=== PATIENT | female | born 1985 | race African-American/Black ===

== ENCOUNTER 2016-07-06 16:30 | Emergency (ER) | payer BC ==
--- NOTE | 2016-07-06 16:39 | ER Document Report ---
ED Medical Screen (RME) - General Stated Complaint: KNEE INJURY Mode of Arrival: Ambulatory Information source: Patient Notes: Patient fell down steps injuring left knee. I have greeted and performed a rapid initial assessment of this patient. A comprehensive ED assessment and evaluation of the patient, analysis of test results and completion of the medical decision making process will be conducted by additional ED providers. TRAVEL OUTSIDE OF THE [place] IN LAST 30 DAYS: No - Related Data Allergies/Adverse Reactions: No Known Allergies Allergy (Verified 07/06/16 16:37) Past Medical History - Social History Chew tobacco use (# tins/day): No Frequency of alcohol use: None Drug Abuse: None Pulmonary Medical History: Reports: Hx Asthma Renal/ Medical History: Denies: Hx Peritoneal Dialysis Past Surgical History: Reports: Hx Gynecologic Surgery - leep procedure - Immunizations Immunizations up to date: No Hx Diphtheria, Pertussis, Tetanus Vaccination: No Physical Exam - Vital signs Vitals: Temp Pulse Resp BP Pulse Ox 98.3 F 109 H 16 137/94 H 98 07/06/16 16:37 07/06/16 16:37 07/06/16 16:37 07/06/16 16:37 07/06/16 16:37 - Extremities General lower extremity: Tender - Left knee Course - Vital Signs Vital signs: Temp Pulse Resp BP Pulse Ox 98.3 F 109 H 16 137/94 H 98 07/06/16 16:37 07/06/16 16:37 07/06/16 16:37 07/06/16 16:37 07/06/16 16:37
--- NOTE | 2016-07-06 18:39 | ER Document Report ---
HPI - HPI Patient complains to provider of: left knee pain Onset: This afternoon Onset/Duration: Persistent Quality of pain: Achy Severity: Moderate Pain Level: 3 Context: Patient complains of left knee pain after falling down 4 concrete steps. Patient reports it hurts to walk. She denies past medical history of injury the knee. No other complaints such as fever vomiting diarrhea. No complaints of head pain. Associated Symptoms: None Exacerbated by: Walking Relieved by: Denies Similar symptoms previously: No Recently seen / treated by doctor: No - REPRODUCTIVE Reproductive: DENIES: : - DERM Skin Color: Normal Past Medical History - General Information source: Patient Last Menstrual Period: 06/20/16 - Social History Smoking Status: Unknown if Ever Smoked Cigarette use (# per day): No Chew tobacco use (# tins/day): No Frequency of alcohol use: None Drug Abuse: None Occupation: [employer] [place] Family History: DM, Malignancy Patient has suicidal ideation: No Patient has homicidal ideation: No Pulmonary Medical History: Reports: Hx Asthma Renal/ Medical History: Denies: Hx Peritoneal Dialysis Surgical Hx: Negative Past Surgical History: Reports: Hx Gynecologic Surgery - leep procedure - Immunizations Immunizations up to date: No Hx Diphtheria, Pertussis, Tetanus Vaccination: No Vertical Provider Document - CONSTITUTIONAL Agree With Documented VS: Yes Exam Limitations: No Limitations General Appearance: WD/WN, Mild Distress - INFECTION CONTROL TRAVEL OUTSIDE OF THE [place] IN LAST 30 DAYS: No - HEENT HEENT: Atraumatic, Normocephalic - NECK Neck: Normal Inspection, Supple - RESPIRATORY Respiratory: No Respiratory Distress O2 Sat by Pulse Oximetry: 98 - CARDIOVASCULAR Cardiovascular: Regular Rate - MUSCULOSKELETAL/EXTREMETIES Musculoskeletal/Extremeties: MAEW, FROM, Tender - left knee point ttp with erythema, slight swelling - NEURO Level of Consciousness: Awake, Alert, Appropriate Motor/Sensory: No Motor Deficit - DERM Integumentary: Warm, Dry Adult Front & Back Diagram: 1 - c/o pain, ttp Course - Re-evaluation Re-evalutation: 07/06/16 19:21 Patient instructed on negative x-rays plan of care to include Motrin rest ice. Patient prescribed crutches because it hurts when she walks - Vital Signs Vital signs: Temp Pulse Resp BP Pulse Ox 98.3 F 109 H 16 137/94 H 98 07/06/16 16:37 07/06/16 16:37 07/06/16 16:37 07/06/16 16:37 07/06/16 16:37 - Diagnostic Test Radiology reviewed: Image reviewed, Reports reviewed - IMPRESSION: NEGATIVE STUDY OF THE LEFT KNEE. NO RADIOGRAPHIC EVIDENCE OF ACUTE INJURY IMPRESSION: NO SIGNIFICANT RADIOGRAPHIC ABNORMALITY. Discharge - Discharge Clinical Impression: elevated blood pressure reading Left knee pain Qualifiers: Chronicity: acute Qualified Code(s): M25.562 - Pain in left knee Condition: Stable Disposition: HOME, SELF-CARE Instructions: Ice & Elevation ([facility]), Ibuprofen (General) ([facility]), Use of Crutches ([facility]) Additional Instructions: *You have been evaluated for left knee pain *Monitor your blood pressure. Your blood pressure was elevated today. This may be because you were anxious, in pain or because you need medication. It is important to follow up with your primary care provider for full evaluation. *Use the crutches for comfort *Rest/Ice/Elevate *Follow up with orthopedics for continued pain-call for an appointment *Take medication as prescribed *Follow up with her primary care provider within one week for recheck. *Return to ED for worsening condition, changes, needs Prescriptions: Ibuprofen [Motrin 800 mg Tablet] 800 mg PO TID PRN #30 tablet PRN Reason: Forms: Elevated Blood Pressure, Return to Work
[2016-07-06] MEDS ORDERED: ACETAMINOPHEN 325 MG TABLET PO ONE (18:46)
[2016-07-06 19:50] VITALS: BP 132/88
== END 2016-07-06 19:50 | disposition home or self-care (01) ==
LOC: ER 16:30
DX: M25.562 Pain in left knee (principal); R03.0 Elevated blood-pressure reading, without diagnosis of hypertension
CPT/HCPCS: 99283

== ENCOUNTER 2016-11-21 16:59 | Emergency (ER) | payer BC ==
[2016-11-21] MEDS ORDERED: IBUPROFEN 800 MG TABLET PO ONE (17:42)
[2016-11-21] MEDS ORDERED: ONDANSETRON 4 MG TAB.RAPDIS PO ONE (17:42)
--- NOTE | 2016-11-21 17:43 | ER Document Report ---
HPI - HPI Patient complains to provider of: nausea Onset: Other - 3 weeks Onset/Duration: Persistent Quality of pain: Achy Pain Level: 2 Context: Patient complains of nausea for the past 3 weeks. Patient states that she vomited 2 days ago but none since then. Patient denies any abdominal pain or back pain. Patient does state that she has anterior chest pain but states that this is a chronic pain that she has had for the past year. Patient states she has seen her primary doctor about this he feels that she has costochondritis and she is also seen a propulsion motor and generator repairer who feels that she has reactive airway disease. Patient personally believes that she has chest wall discomfort due to her heavy pendulous breasts. Patient states she has had this chest pain daily for the past year and the intensity of the pain varies with her sleeping position the night before. Patient denies any fever, cough, urinary symptoms, or diarrhea. Associated Symptoms: Chest pain, Nausea. denies: Nonproductive cough, Productive cough, Diarrhea, Fever, Headache, Vomiting, Shortness of breath, Sore throat Exacerbated by: Denies Relieved by: Denies Similar symptoms previously: Yes Recently seen / treated by doctor: No - ROS ROS below otherwise negative: Yes Systems Reviewed and Negative: Yes All other systems reviewed and negative - CONSTITUTIONAL Constitutional: DENIES: Fever, Chills - EENT EENT: DENIES: Sore Throat - CARDIOVASCULAR Cardiovascular: REPORTS: Chest pain - RESPIRATORY Respiratory: DENIES: Trouble Breathing, Coughing - GASTROINTESTINAL Gastrointestinal: REPORTS: Nausea. DENIES: Abdominal Pain, Patient vomiting, Diarrhea - URINARY Urinary: DENIES: Dysuria - REPRODUCTIVE Reproductive: DENIES: : - MUSCULOSKELETAL Musculoskeletal: DENIES: Back Pain, Neck Pain - DERM Skin Color: Normal Skin Problems: None <SURJIT FIGUEROA - Last Filed: 11/21/16 21:59> Past Medical History - General Information source: Patient - Social History Smoking Status: Never Smoker Chew tobacco use (# tins/day): No Frequency of alcohol use: None Drug Abuse: None Occupation: [employer] Family History: DM, Malignancy Patient has suicidal ideation: No Patient has homicidal ideation: No Pulmonary Medical History: Reports: Hx Asthma, Other - RAD Renal/ Medical History: Denies: Hx Peritoneal Dialysis Past Surgical History: Reports: Hx Gynecologic Surgery - leep procedure - Immunizations Immunizations up to date: No Hx Diphtheria, Pertussis, Tetanus Vaccination: No <CAROLINASURJIT Maradiaga - Last Filed: 11/21/16 21:59> Vertical Provider Document - CONSTITUTIONAL Agree With Documented VS: Yes Exam Limitations: No Limitations General Appearance: WD/WN, No Apparent Distress - INFECTION CONTROL TRAVEL OUTSIDE OF THE [place] IN LAST 30 DAYS: No - HEENT HEENT: Atraumatic, Normal ENT Exam, Normocephalic - NECK Neck: Normal Inspection, Supple - RESPIRATORY Respiratory: Breath Sounds Normal, No Respiratory Distress. negative: Chest Non -Tender - Anterior chest wall tenderness that is worse with palpation O2 Sat by Pulse Oximetry: 95 - CARDIOVASCULAR Cardiovascular: Regular Rate, Regular Rhythm, No Murmur - GI/ABDOMEN Gastrointestinal: Abdomen Soft, Abdomen Non-Tender, No Organomegaly - BACK Back: Normal Inspection - MUSCULOSKELETAL/EXTREMETIES Musculoskeletal/Extremeties: MAEW, FROM - NEURO Level of Consciousness: Awake, Alert, Appropriate Motor/Sensory: No Motor Deficit, No Sensory Deficit - DERM Integumentary: Warm, Dry, No Rash <SURJIT FIGUEROA - Last Filed: 11/21/16 21:59> Course - Re-evaluation Re-evalutation: 11/21/16 20:[address] Ramirez regarding patient presentation and diagnostic test results. EKG reviewed. No additional testing advised at this time. 11/21/16 The patient has atypical chest pain as the patient's chest pain is not suggestive of pulmonary embolus, cardiac ischemia, aortic dissection, or other serious etiology. Given the extremely low risk of these diagnoses for the test in evaluation for these possibilities does not appear to be indicated at this time. Patient has been instructed to return if the symptoms worsen or change in any way. - Vital Signs Vital signs: Temp Pulse Resp BP Pulse Ox 98.6 F 88 18 133/75 H 95 11/21/16 17:06 11/21/16 17:06 11/21/16 17:06 11/21/16 17:06 11/21/16 17:06 - Laboratory Result Diagrams: 11/21/16 18:48 11/21/16 18:48 Laboratory results interpreted by me: 11/21/16 20:08 Labs- Entire Visit 11/21/16 11/21/16 11/21/16 18:48 18:48 18:48 WBC 8.7 RBC 4.95 Hgb 12.7 Hct 39.8 MCV 81 MCH 25.6 L MCHC 31.8 L RDW 15.3 H Plt Count 297 Seg Neutrophils % 54.6 Lymphocytes % 36.4 Monocytes % 7.9 Eosinophils % 0.5 Basophils % 0.6 Absolute Neutrophils 4.7 Absolute Lymphocytes 3.2 Absolute Monocytes 0.7 Absolute Eosinophils 0.0 Absolute Basophils 0.1 Sodium 138.3 Potassium 4.0 Chloride 101 Carbon Dioxide 27 Anion Gap 10 BUN 13 Creatinine 0.83 Est GFR ( Amer) > 60 Est GFR (Non-Af Amer) > 60 Glucose 85 Calcium 9.4 Total Bilirubin 0.4 Direct Bilirubin 0.3 Indirect Bilirubin Not Reportable Neonat Total Bilirubin Not Reportable AST 14 ALT 31 Alkaline Phosphatase 73 Creatine Kinase 70 CK-MB (CK-2) 0.46 Troponin I < 0.012 Total Protein 7.8 Albumin 4.1 Serum HCG, Qual Urine Color Urine Appearance Urine pH Ur Specific [place] Urine Protein Urine Glucose (UA) Urine Ketones Urine Blood Urine Nitrite Urine Bilirubin Urine Urobilinogen Ur Leukocyte Esterase Urine RBC Urine WBC Ur Squamous Epith Cells Urine Bacteria Urine Mucus Urine Trichomonas Urine Ascorbic Acid 11/21/16 11/21/16 18:48 18:48 WBC RBC Hgb Hct MCV MCH MCHC RDW Plt Count Seg Neutrophils % Lymphocytes % Monocytes % Eosinophils % Basophils % Absolute Neutrophils Absolute Lymphocytes Absolute Monocytes Absolute Eosinophils Absolute Basophils Sodium Potassium Chloride Carbon Dioxide Anion Gap BUN Creatinine Est GFR ( Amer) Est GFR (Non-Af Amer) Glucose Calcium Total Bilirubin Direct Bilirubin Indirect Bilirubin Neonat Total Bilirubin AST ALT Alkaline Phosphatase Creatine Kinase CK-MB (CK-2) Troponin I Total Protein Albumin Serum HCG, Qual NEGATIVE Urine Color YELLOW Urine Appearance SLIGHTLY-CLOUDY Urine pH 6.0 Ur Specific [place] 1.017 Urine Protein NEGATIVE Urine Glucose (UA) NEGATIVE Urine Ketones NEGATIVE Urine Blood SMALL H Urine Nitrite NEGATIVE Urine Bilirubin NEGATIVE Urine Urobilinogen NEGATIVE Ur Leukocyte Esterase MODERATE H Urine RBC 5-10 Urine WBC 10-20 Ur Squamous Epith Cells FEW Urine Bacteria 3+ Urine Mucus 2+ Urine Trichomonas PRESENT Urine Ascorbic Acid NEGATIVE 11/21/16 22:02 11/21/16 22:03 - Diagnostic Test Radiology reviewed: Reports reviewed - EKG Interpretation by Me EKG shows normal: Sinus rhythm When compared to previous EKG there are: No significant change <SURJIT FIGUEROA - Last Filed: 11/21/16 21:59> - Vital Signs Vital signs: Temp Pulse Resp BP Pulse Ox 98.2 F 75 18 126/78 H 95 11/21/16 20:39 11/21/16 20:39 11/21/16 20:39 11/21/16 20:39 11/21/16 22:03 - Laboratory Result Diagrams: 11/21/16 18:48 11/21/16 18:48 Laboratory results interpreted by me: 11/21/16 11/21/16 18:48 18:48 MCH 25.6 L MCHC 31.8 L RDW 15.3 H Urine Blood SMALL H Ur Leukocyte Esterase MODERATE H <KIKI RAMIREZ - Last Filed: 11/22/16 14:53> Discharge <SURJIT FIGUEROA - Last Filed: 11/21/16 21:59> <KIKI RAMIREZ - Last Filed: 11/22/16 14:53> - Discharge Clinical Impression: Nausea, Chronic chest wall pain UTI (urinary tract infection) Qualifiers: Urinary tract infection type: site unspecified Hematuria presence: with hematuria Qualified Code(s): N39.0 - Urinary tract infection, site not specified Condition: Stable Disposition: HOME, SELF-CARE Instructions: Trimethoprim-Sulfa ([facility]), Urinary Tract Infection ([facility]), Nausea or Vomiting, Nonspecific ([facility]), Chest Pain of Unclear Cause ([facility]), Chest Wall Pain ([facility]) Additional Instructions: Return immediately for any new or worsening symptoms Followup with your primary care provider, call tomorrow to make a followup appointment Urine culture is pending, we will call if you need any different treatment Prescriptions: Ondansetron HCl [Zofran 4 mg Tablet] 1 - 2 tab PO Q6 PRN #15 tablet PRN Reason: Sulfamethoxazole/Trimethoprim [Bactrim Ds Tablet] 1 each PO BID #14 tablet Referrals: BRENDA TELLEZ MD [Primary Care Provider] - Follow up in 3-5 days
--- NOTE | 2016-11-21 18:16 | RADIOLOGY REPORT (SQ) ---
EXAM DESCRIPTION: CHEST PA/LAT COMPLETED DATE/TIME: 11/21/2016 6:05 pm REASON FOR STUDY: cp COMPARISON: 07/10/2015 EXAM PARAMETERS: NUMBER OF VIEWS: two views TECHNIQUE: Digital Frontal and Lateral radiographic views of the chest acquired. RADIATION DOSE: NA LIMITATIONS: none FINDINGS: LUNGS AND PLEURA: No opacities, masses or pneumothorax. No pleural effusion. MEDIASTINUM AND HILAR STRUCTURES: No masses or contour abnormalities. HEART AND VASCULAR STRUCTURES: Heart normal size. No evidence for failure. BONES: No acute findings. HARDWARE: None in the chest. OTHER: No other significant finding. IMPRESSION: NO SIGNIFICANT RADIOGRAPHIC FINDING IN THE CHEST. TECHNICAL DOCUMENTATION: JOB ID: [id number] [employer]- All Rights Reserved
[2016-11-21 19:07] LABS: ABSOLUTE BASOPHILS # (AUTO) 0.1 10^3/uL (0.0-0.2); ABSOLUTE LYMPHOCYTES (AUTO) 3.2 10^3/uL (0.5-4.7); ABSOLUTE MONOCYTES (AUTO) 0.7 10^3/uL (0.1-1.4); ABSOLUTE NEUT (AUTO) 4.7 10^3/uL (1.7-8.2); BASOPHILS % (AUTO) 0.6 % (0-2); EOSINOPHILS % (AUTO) 0.5 % (0-6); HEMATOCRIT 39.8 % (36.0-47.0); HEMOGLOBIN 12.7 g/dL (12.0-15.5); HGB HCT DIFFERENCE -1.7; LYMPHOCYTES % (AUTO) 36.4 % (13-45); MEAN CORPUSCULAR HEMOGLOBIN 25.6 pg (27.0-33.4); MEAN CORPUSCULAR HGB CONC 31.8 g/dL (32.0-36.0); MEAN CORPUSCULAR VOLUME 81 fl (80-97); MONOCYTES % (AUTO) 7.9 % (3-13); RED BLOOD COUNT 4.95 10^6/uL (3.72-5.28); RED CELL DISTRIBUTION WIDTH 15.3 % (11.5-14.0); SEGMENTED NEUTROPHILS % (AUTO) 54.6 % (42-78); WHITE BLOOD COUNT 8.7 10^3/uL (4.0-10.5)
[2016-11-21 19:15] LABS: APPEARANCE,URINE SLIGHTLY-CLOUDY; BILIRUBIN,URINE NEGATIVE (NEGATIVE); GLUCOSE, URINE NEGATIVE (NEGATIVE); KETONES,URINE NEGATIVE (NEGATIVE); LEUKOCYTE ESTERASE,URINE MODERATE (NEGATIVE); NITRITE,URINE NEGATIVE (NEGATIVE); PROTEIN,URINE NEGATIVE (NEGATIVE); URINE SPECIFIC GRAVITY 1.017; UROBILINOGEN,URINE NEGATIVE mg/dL (<2.0)
[2016-11-21 19:23] LABS: ALANINE AMINOTRANSFERASE 31 U/L (9-52); ALBUMIN 4.1 g/dL (3.5-5.0); ALKALINE PHOSPHATASE 73 U/L (38-126); ANION GAP 10 (5-19); ASPARTATE AMINO TRANSFERASE 14 U/L (14-36); BILIRUBIN,DIRECT 0.3 mg/dL (0.0-0.4); BILIRUBIN,TOTAL 0.4 mg/dL (0.2-1.3); BLOOD UREA NITROGEN 13 mg/dL (7-20); CALCIUM 9.4 mg/dL (8.4-10.2); CARBON DIOXIDE 27 mmol/L (22-30); CHLORIDE 101 mmol/L (98-107); CREATINE KINASE 70 U/L (30-135); CREATININE RESULT 0.83 mg/dL (0.52-1.25); GLUCOSE 85 mg/dL (75-110); SODIUM 138.3 mmol/L (137-145); TOTAL PROTEIN 7.8 g/dL (6.3-8.2); TRICHOMONAS,URINE PRESENT
[2016-11-21 19:27] LABS: BACTERIA,URINE 3+ /HPF
[2016-11-21 19:35] LABS: CREATINE KINASE MB 0.46 ng/mL (<4.55)
[2016-11-21 19:37] LABS: TROPONIN I < 0.012 ng/mL
[2016-11-21] MEDS ORDERED: SULFAMETHOXAZOLE/TRIMETHOPRIM 800-160 MG TABLET PO ONE (20:08)
[2016-11-21 20:42] VITALS: BP 126/78
--- NOTE | 2016-11-22 17:29 | EKG REPORT ---
SEVERITY:- BORDERLINE ECG - SINUS RHYTHM INFERIOR Q WAVES, PROBABLY NORMAL VARIATION : Confirmed by: Evie Quintana 22-Nov-2016 17:29:14
== END 2016-11-21 20:40 | disposition home or self-care (01) ==
LOC: ER 16:59
DX: R11.0 Nausea (principal); G89.29 Other chronic pain; R07.89 Other chest pain; N39.0 Urinary tract infection, site not specified
CPT/HCPCS: 93005; 99284; 36415; 87086; 82553; 82550; 84703; 85025; 80053; 81001; 84484; 71020; 93010; S0119

== ENCOUNTER → 2017-12-28 | Outpatient (CLI) | payer BC ==
--- NOTE | 2017-12-28 14:34 | RADIOLOGY REPORT (SQ) ---
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 TECHNIQUE: CT scanogram of the bilateral lower extremities is performed including pelvis to ankles. Measurements of femur, tibia, and entire lower extremities performed by the radiologist and saved to PACS. All CT scanners at this facility use dose modulation, iterative reconstruction, and/or weight based d osing when appropriate to reduce radiation dose to as low as reasonably achievable (ALARA). [facility]: Dose Right [facility]: CareDose [facility]: Dose Right [facility]: Teradose 4D [facility]: [facility] 5[facility] RADIATION DOSE: mGy. LIMITATIONS: None. FINDINGS: RIGHT: FEMUR: 43.7 cm. TIBIA: 37.6 cm. TOTAL RIGHT LOWER EXTREMITY LENGTH: 81.7 cm. LEFT: FEMUR: 43.7 cm. TIBIA: 37.6 cm. TOTAL LEFT LOWER EXTREMITY LENGTH: 81.7 cm. IMPRESSION: LEG LENGTH MEASUREMENTS DETAILED ABOVE. TECHNICAL DOCUMENTATION: JOB ID: [id number] Quality ID # [id number]: Final reports with documentation of one or more dose reduction techniques (e.g., Au tomated exposure control, adjustment of the mA and/or kV according to patient size, use of iterative reconstruction technique) 2010 [employer]- All Rights Reserved Reading location - IP/workstation name: [email or web address]
== END ==
LOC: RAD 13:35
PROVIDERS: ATTEND Podiatrist Foot & Ankle Surgery
DX: Q72.819 Congenital shortening of unspecified lower limb (principal)
CPT/HCPCS: 77073

== ENCOUNTER 2019-12-31 10:44 | Emergency (ER) | payer BC ==
--- NOTE | 2019-12-31 11:57 | ER Document Report ---
ED Medical Screen (RME) - General Chief Complaint: Hip Pain Stated Complaint: RIGHT HIP PAIN Time Seen by Provider: 12/31/19 11:54 Primary Care Provider: BRENDA TELLEZ MD [Primary Care Provider] - Follow up as needed Notes: HPI: 34-year-old female presenting for continued right hip and pelvic pain after a mechanical type fall 2 weeks ago. States she was here 2 days ago and had negative x-rays of the hip and back but pain is worse. States that she went to stretch her leg and felt something "pop" in the right hip and pelvis region denies abdominal or pelvic pain. Denies incontinence of urine or bowel. Denies numbness or tingling. Has not followed up with orthopedics yet PHYSICAL EXAMINATION: There is mild tenderness on palpation of the anterior portion of the right inguinal region and upper leg. No direct tenderness on compression of the pelvis I have greeted and performed a rapid initial assessment of this patient. A comprehensive ED assessment and evaluation of the patient, analysis of test results and completion of medical decision making process will be conducted by an additional ED providers. TRAVEL OUTSIDE OF THE [place] IN LAST 30 DAYS: No - Related Data Allergies/Adverse Reactions: No Known Allergies Allergy (Verified 12/31/19 11:47) Past Medical History Pulmonary Medical History: Reports: Hx Asthma Renal/ Medical History: Denies: Hx Peritoneal Dialysis Past Surgical History: Reports: Hx Gynecologic Surgery - leep procedure - Immunizations Immunizations up to date: No Hx Diphtheria, Pertussis, Tetanus Vaccination: No Physical Exam - Vital signs Vitals: Temp Pulse Resp BP Pulse Ox 98.5 F 100 18 132/75 H 97 12/31/19 10:48 12/31/19 10:48 12/31/19 10:48 12/31/19 10:48 12/31/19 10:48 Course - Vital Signs Vital signs: Temp Pulse Resp BP Pulse Ox 98.5 F 100 18 132/75 H 97 12/31/19 10:48 12/31/19 10:48 12/31/19 10:48 12/31/19 10:48 12/31/19 10:48 Doctor's Discharge - Discharge Referrals: BRENDA TELLEZ MD [Primary Care Provider] - Follow up as needed
--- NOTE | 2019-12-31 12:40 | RADIOLOGY REPORT (SQ) ---
EXAM DESCRIPTION: CT RT LOWER EXTREMITY WITHOUT IMAGES COMPLETED DATE/TIME: 12/31/2019 12:28 pm REASON FOR STUDY: right hip/pelvis - fall pain COMPARISON: Right hip radiographs 12/29/2019 TECHNIQUE: CT scan of the right hip performed without intravenous or oral contrast. Images reviewed with soft tissue and bone windows. Reconstructed coronal and sagittal MPR images reviewed. All opal ges stored on PACS. All CT scanners at this facility use dose modulation, iterative reconstruction, and/or weight based d osing when appropriate to reduce radiation dose to as low as reasonably achievable (ALARA). [facility]: Dose Right [facility]: CareDose [facility]: Dose Right [facility]: Teradose 4D [facility]: [email or web address] RADIATION DOSE: CT Rad equipment meets quality standard of care and radiation dose reduction techniq ues were employed. CTDIvol: 43.8 mGy. DLP: 1001 mGy-cm. mGy. LIMITATIONS: None. FINDINGS: PELVIC BONES: No acute fracture. No worrisome bone lesions. VISUALIZED SPINE: No acute findings. RIGHT HIP: No acute fracture or dislocation. No worrisome bone lesions. Minimal early osteophyte for mation about the right femoral head. PELVIC SOFT TISSUES: No significant findings. EXTRAPELVIC SOFT TISSUES: No significant findings. OTHER: No other significant finding. IMPRESSION: NO ACUTE FRACTURE IN THE RIGHT HIP. TECHNICAL DOCUMENTATION: JOB ID: [id number] Quality ID # [id number]: Final reports with documentation of one or more dose reduction techniques (e.g., Au tomated exposure control, adjustment of the mA and/or kV according to patient size, use of iterative reconstruction technique) 2010 [employer]- All Rights Reserved Reading location - IP/workstation name: [email or web address]
[2019-12-31] MEDS ORDERED: KETOROLAC TROMETHAMINE INJ/PF 30 MG/1 ML SDV IM ONE (15:24)
--- NOTE | 2019-12-31 16:28 | ER Document Report ---
ED General - General Chief Complaint: Hip Pain Stated Complaint: RIGHT HIP PAIN Time Seen by Provider: 12/31/19 11:54 Primary Care Provider: BRENDA TELLEZ MD [Primary Care Provider] - Follow up as needed Notes: 34 y/o female presenting with continued right hip pain since November 16. 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 She came to the ER and had xrays performed which showed no fractures, prescribed muslce relaxors and a steroid. She has not taken anything else for pain. Has not started the steroid pack. States the pain is in her right lower quadrant. LMP was a few days ago. Last visit she had a negative test. She has been unable to sleep due to the pain. She denies any additional symptoms at this time to include fevers, chills, numbness/tingling. TRAVEL OUTSIDE OF THE [place] IN LAST 30 DAYS: No - Related Data Allergies/Adverse Reactions: No Known Allergies Allergy (Verified 12/31/19 11:47) Past Medical History - Social History Smoking Status: Former Smoker Family History: Reviewed & Not Pertinent, DM, Malignancy Patient has homicidal ideation: No Pulmonary Medical History: Reports: Hx Asthma Renal/ Medical History: Denies: Hx Peritoneal Dialysis Past Surgical History: Reports: Hx Gynecologic Surgery - leep procedure - Immunizations Immunizations up to date: No Hx Diphtheria, Pertussis, Tetanus Vaccination: No Review of Systems - Review of Systems Constitutional: No symptoms reported EENT: No symptoms reported Cardiovascular: No symptoms reported Respiratory: No symptoms reported Gastrointestinal: No symptoms reported Genitourinary: No symptoms reported Female Genitourinary: No symptoms reported Musculoskeletal: See HPI Skin: No symptoms reported Hematologic/Lymphatic: No symptoms reported Neurological/Psychological: No symptoms reported Physical Exam - Vital signs Vitals: Temp Pulse Resp BP Pulse Ox 98.5 F 100 18 132/75 H 97 12/31/19 10:48 12/31/19 10:48 12/31/19 10:48 12/31/19 10:48 12/31/19 10:48 Interpretation: Normal - Notes Notes: Adult General: GENERAL: Alert, interacts well. No acute distress HEAD: Normocephalic, atraumatic EYES: Extraocular movements intact. ENT: Airway patent. Nares patent. NECK: Full range of motion. Supple. Trachea midline. No lymphadenopathy. LUNGS: Clear to auscultation bilaterally, no wheezes, rales, or rhonchi. No respiratory distress. Nontender chest wall. HEART: Regular rate and rhythm. No murmurs, rubs or gallops. ABDOMEN: Soft, right lower quadrant ttp above ASIS. Nondistended. (-) [place] sign. Bowel sounds present in all 4 quadrants. No rebound, guarding or masses. GENITOURINARY: Deferred EXTREMITIES: Moves all 4 extremities spontaneously. Pain with hip flexion. No lateral hip tenderness. Limited external rotation. No edema, normal radial and dorsal pedis pulses bilaterally. No cyanosis. BACK: No saddle anesthesia, normal distal neurovascular exam. Moves all extremities with full range of motion. NEUROLOGICAL: Alert and oriented x3. Normal speech. Strength 5/ 5 in all extremities. PSYCH: Normal affect, normal mood. SKIN: Warm, dry, normal turgor. No rashes or lesions noted. Course - Re-evaluation Re-evalutation: 12/31/19 21:57 Patient standing at door when I arrrived to room. She ambulated with mild limp to the bed. CT scan shows minimal early osteophytes at femoral head. I do not suspect this is causing her pain. I have concerns of a pelvic pathology causing her symptoms. I have ordered a ultrasound and toradol. Her vitals are stable and she is non toxic in appearance. Patient was reevaluated. The toradol helped to alleviate most of her pain. She states she has to leave to picker and packer her son. Her ultrasound has not been performed at this time. Patient works in the radiology department. We discussed ordering the utlrasound and having her perform it on an outpatient basis. I also discussed with her that if she has worsening symptoms she is to return to the emergency department. Patient is agreeable to plan. I have low suspicion for appendicitis as she is afebrile, not tachycardic and her symptoms have been occurring since November 16. I also do not suspect ovarian torsion based on the length of her symptoms, again she is a febrile and vitals are stable and normal. I discussed with patient that her symptoms could be musculoskeletal in nature as well. As her symptoms improved with the toradol, I will prescribe her oral toradol for her pain. I also discussed follow up with her primary care provider. Patient acknowledges and verbalizes understanding of instructions and plan. All questions answered. - Vital Signs Vital signs: Temp Pulse Resp BP Pulse Ox 98.9 F 100 16 120/70 97 12/31/19 16:31 12/31/19 10:48 12/31/19 16:31 12/31/19 16:31 12/31/19 10:48 Discharge - Discharge Clinical Impression: Right hip pain, Right lower quadrant pain Condition: Stable Disposition: HOME, SELF-CARE Additional Instructions: I recommend that you follow-up to have the ultrasound done. I do not have a clear etiology of your pain. I will prescribe you oral pain medication. Please follow up with your primary care provider. Please return to the emergency department if you have worsening symptoms or the development of new symptoms. Prescriptions: Ketorolac Tromethamine [Toradol 10 mg Tablet] 10 mg PO Q6HP PRN 5 Days #20 tablet PRN Reason: Forms: Follow-Up Radiology Testing Referrals: BRENDA TELLEZ MD [Primary Care Provider] - Follow up as needed
[2019-12-31 16:37] VITALS: BP 120/70
== END 2019-12-31 16:37 | disposition home or self-care (01) ==
LOC: ER 10:44
DX: M25.551 Pain in right hip (principal); R10.31 Right lower quadrant pain; V89.2XXA Person injured in unspecified motor-vehicle accident, traffic, initial encounter; Z87.891 Personal history of nicotine dependence; J45.909 Unspecified asthma, uncomplicated
CPT/HCPCS: 99283; 96372; 73700; J1885